=== PATIENT | male | born 1975 | race Caucasian/White ===

== ENCOUNTER 2018-06-07 09:33 | Day surgery (SDC) | payer OTHER ==
[~2018-06-07 09:33] MED LIST: ACETAMINOPHEN 1,000 MG/100 ML BTL IV ONE; CEFAZOLIN 2 Gram 2 GM/50 ML BAG IVPB ONE
[2018-06-07] MEDS ORDERED: LIDOCAINE 2% MDV (20MG/ML) 20ML VIAL IV ONE (09:34)
[2018-06-07] MEDS ORDERED: **ER** KETAMINE HCL 500MG/10ML VIAL IV ONE (09:34)
[2018-06-07] MEDS ORDERED: SEVOFLURANE 250 ML INH ONE (09:34)
[2018-06-07] MEDS ORDERED: KETOROLAC 30 MG/ML VIAL IVP ONE (09:34)
[2018-06-07] MEDS ORDERED: BUPIVACAINE 0.5% W/EPI MPF 30 ML VIAL IVP ONE (09:34)
[2018-06-07] MEDS ORDERED: PROPOFOL 10 MG/ML VIAL IV ONE (09:34)
[2018-06-07] MEDS ORDERED: MORPHINE SULFATE 4 MG/ML VIAL ONE (13:15)
--- NOTE | 2018-06-10 13:08 | Operative Note ---
DATE: 06/07/2018. PREOPERATIVE DIAGNOSIS: INTERNAL DERANGEMENT OF THE RIGHT KNEE. POSTOPERATIVE DIAGNOSES: 1. LOOSE BODIES OF THE RIGHT KNEE. 2. 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 3. LARGE CHONDRAL LESION OF THE LATERAL FEMORAL CONDYLE. PROCEDURES: 1. Right knee arthroscopy with intra-articular debridement. 2. Right knee arthroscopy with removal of loose bodies. STAFF SURGEON: Gordon Calderon M.D. ANESTHESIA: General. PREPARATION: ChloraPrep. INDIVIDUAL CONSIDERATIONS: None. DESCRIPTION OF THE PROCEDURE: The patient was taken to the operating room and placed supine on the operating table. He had successful induction of a general anesthetic. His right lower extremity was prepped and draped in the usual fashion. The patient had a superolateral inflow cannula placed. The skin had been infiltrated with 0.5% Marcaine with epinephrine prior. Clear effusion was drained. An inferomedial and an inferolateral portal were made in a similar fashion. The arthroscope was introduced through the inferolateral portal up into the pouch. The patellofemoral joint showed basically fibrocartilage with loose fibrocartilage of the notch and grade 3 changes on the patella. Mild to moderate synovitis was present in the pouch. Cartilaginous loose bodies were seen in both gutters which were debrided out. The loose marginal cartilage in the notch was debrided. The patella was smoothed medially. Medial compartment structures were well seen and probed and were found to be basically normal. There was minimal chondromalacia of the medial femoral condyle. In the notch, the cruciates were normal. However, within the notch there were to large cartilaginous loose bodies which were highly unstable. These were removed. In the lateral compartment, there was basically a large cartilage lesion at the articular cartilage of the lateral femoral condyle just lateral to the midline starting at about 45 degrees, about the size of between a quarter and a nickel. The loose marginal cartilage was debrided. After irrigation, the portals were closed with gage, and 20 mL of 0.25% plain Marcaine along with 4.0 mg of morphine and 40 mg of Depo Medrol were injected into the knee. A sterile, Bulkee compressive dressing was applied. The patient tolerated the procedures well. Needle and sponge counts were correct. Estimated blood loss was minimal. He was taken back to Recovery in good condition. There were no complications. Job Number: [id number] [facility]
== END 2018-06-07 15:10 | disposition home or self-care (01) ==
LOC: SUR 09:33
PROVIDERS: ATTEND Orthopaedic Surgery
DX: M23.41 Loose body in knee, right knee (principal); M24.10 Other articular cartilage disorders, unspecified site; M22.41 Chondromalacia patellae, right knee; I48.91 Unspecified atrial fibrillation
CPT/HCPCS: 29877; 29874; 01400; J1885; J0690; J2270